=== PATIENT | male | born 1960 | race Caucasian/White ===

== ENCOUNTER 2017-01-07 06:55 | Day surgery (SDC) | payer OTHER ==
[~2017-01-07] VITALS: Ht 175.3 cm; Wt 82.7 kg
[~2017-01-07 06:55] MED LIST: HYD25 PO; SIMV10TA PO
[2017-01-07 07:32] VITALS: Ht 175.3 cm; Wt 82.7 kg
[2017-01-07 07:58] VITALS: BP 113/65; PULSE 59; RESP 14
[2017-01-07 09:00] VITALS: BP 109/66; PULSE 52; RESP 12
[2017-01-07] MEDS ORDERED: FENTAnyl 50 MCG/ML VIAL ONE (09:24)
[2017-01-07] MEDS ORDERED: MIDAZOLAM 1 MG/ML 2 ML INJ ONE ×2 (09:25)
--- NOTE | 2017-01-10 15:30 | OPR ---
DATE OF OPERATION: 01/07/2017 OPERATION PERFORMED: Screening colonoscopy. Rule out colon polyps. POSTOPERATIVE DIAGNOSES: 1. Three polyps noted as described below. 2. Minimal hemorrhoids. OPERATIVE PROCEDURE: After informed written consent was obtained. The patient was also in the left lateral side. 3 mg Versed and 75 mcg of fentanyl was given as intravenous anesthesia. When the patient became somnolent. The Olympus video colonoscope was introduced into the rectum and advanced all the way to the cecum. A 2 mm polyp was noted, in the foldable of both ileocecal valve. This was removed with the cold biopsy forceps. The rest of the colon appeared normal. However, on the way out, 2 polyps were noted just about 3 cm above the anus. One of them was 3 mm, and the other one was 2 mm in diameter. These were removed with the help of the cold biopsy forceps. Minimal external hemorrhoids were noted. No internal hemorrhoids were noted. The procedure was terminated. PLAN: Recommend await for the pathology report before deciding about the next surveillance for colon polyps. Dictated By: Kvng Moore MD /dunia/tory /Document#: [id number] CC: El Bone MD;*End*
== END 2017-01-07 19:34 | disposition home or self-care (01) ==
LOC: GIL 06:55
PROVIDERS: ATTEND Internal Medicine Gastroenterology
DX: Z12.11 Encounter for screening for malignant neoplasm of colon (principal); K63.5 Polyp of colon; K64.4 Residual hemorrhoidal skin tags; N40.0 Benign prostatic hyperplasia without lower urinary tract symptoms; I10 Essential (primary) hypertension
CPT/HCPCS: 45380; 88305; J2250; J3010; Z7610